=== PATIENT | female | born 1950 | race Caucasian/White ===

== ENCOUNTER 2024-08-19 06:26 | Day surgery (SDC) | payer OTHER, SELFPAY | END 2024-08-19 11:38 | disposition home or self-care (01) | LOC: GI 06:26 | PROVIDERS: ATTENDING PHYSICIAN Internal Medicine; FAMILY PHYSICIAN Family Medicine | DX: Z12.11 Encounter for screening for malignant neoplasm of colon (principal); Z86.0100 Personal history of colon polyps, unspecified; Z80.0 Family history of malignant neoplasm of digestive organs; K57.30 Diverticulosis of large intestine without perforation or abscess without bleeding; K64.4 Residual hemorrhoidal skin tags; D12.0 Benign neoplasm of cecum | CPT/HCPCS: 45385; 88305 ==

== ENCOUNTER 2024-09-21 01:10 | Observation (INO) | payer OTHER, SELFPAY ==
[2024-09-20 19:34] VITALS: BP 132/79
[2024-09-20 19:49] LABS: Hematocrit 36.1 % (37.0-47.0); Hemoglobin 12.4 g/dL (12.0-16.0); Mean Corp Hgb Conc. 34.3 g/dL (33.0-37.0); Mean Corpuscular Volume 86.2 fL (81.0-99.0); Nucleated Red Blood Cells % 0 %; Platelet Count 342 10^3/uL (130-400); Red Cell Dist. Width 12.8 % (11.5-14.5)
[2024-09-20 20:22] LABS: ALT (SGPT) 17 U/L (0-35); AST (SGOT) 23 U/L (14-36); Albumin 4.5 g/dl (3.5-5.0); Alkaline Phosphatase 89 U/L (38-126); Blood Urea Nitrogen 13 mg/dl (7-17); Calcium 9.4 mg/dl (8.4-10.2); Carbon Dioxide 25 mmol/L (22-30); Chloride 98 mmol/L (98-107); Glucose 115 mg/dl (70-99); Potassium 4.7 mmol/L (3.5-5.1); Sodium 128 mmol/L (135-145); Total Protein 7.0 g/dl (6.3-8.2); eGFR > 60.00
[2024-09-20 21:05] VITALS: BP 172/85
[2024-09-20 21:11] VITALS: BMI 19.3
--- NOTE | 2024-09-20 21:20 | ED.GENMED ---
History of Present Illness
General
Chief Complaint: Change in Mental Status
Source: patient
Exam Limitations: none
Time Seen by Provider: 09/20/24 20:48
History of Present Illness
History of Present Illness:
Patient had an episode of confusion, forgetfulness, cognitive issues earlier this afternoon. No unusual headache or other neurologic symptoms. Feels better now. Family and friends feel she is somewhat off however.
Past History
Past History
ED Past Surgical History: Appendectomy, Gynecological and Orthopedic
Social History
Tobacco: Non-smoker
Personal:
Review of Systems
Review of Systems
All Other Systems: Not applicable
Constitutional: Denies fever or chills
Respiratory: Reports no symptoms
Cardiac: Reports no symptoms
ABD/GI: Reports no symptoms
Phy Exam
Physical Exam
Physical Exam:
GENERAL: Alert and oriented in no apparent distress
EYE: Orbits normal.
NECK: Supple, no significant adenopathy.
ENT: Pharynx without erythema
CARDIAC: Regular rate and rhythm without any obvious murmurs.
LUNGS: Clear breath sounds,normal
ABDOMEN: Soft, without focal tenderness or distention
NEUROLOGICAL: Alert and oriented , grossly non-focal
SKIN: Warm and dry, no rash or lesion, no discoloration, skin intact.
MUSCULOSKELETAL: No edema,no deformity.Good color
PSYCH: Normal and appropriate interaction.. Cranial nerves II through XII intact. Speech normal. [id number] normal.
Course
Orders/Labs/Results
Orders:
Orders
09/20/24 19:38
CT Head W/o Iv Contrast Urgent
Comment:
Reason For Exam: ams
09/20/24 19:43
Complete Blood Count/With Diff Urgent
Comprehensive Metabolic Panel Urgent
Abnormal Lab Results
09/20/24
19:43
RBC 4.19 L 10^6/uL
(4.20-5.40)
Hct 36.1 L %
(37.0-47.0)
Absolute Lymphs (auto) 0.9 L 10^3/uL
(1.2-3.4)
Lymphocytes % 17.6 L %
(20.5-51.1)
Sodium 128 L mmol/L
(135-145)
Creatinine 0.5 L mg/dL
(0.6-1.0)
Glucose 115 H mg/dl
(70-99)
09/20/24 19:43
09/20/24 19:43
Vital Signs
Initial and Last Documented VS:
Initial Vital Signs
Temp Pulse Resp BP Pulse Ox
98.2 F 75 16 132/79 99
09/20/24 19:34 09/20/24 19:34 09/20/24 19:34 09/20/24 19:34 09/20/24 19:34
Last Documented Vital Signs
Temp Pulse Resp BP Pulse Ox
98.2 F 68 18 125/73 99
09/20/24 19:34 09/21/24 00:00 09/21/24 00:00 09/21/24 00:00 09/21/24 00:00
*Radiology
Radiology exam reviewed: radiology read reviewed (Volume loss. Chronic neurodegenerative disease based on CT)
*Pulse Oximetry
SaO2: 99
Oxygen Mode of Delivery: Room air
Patient hypoxic: no
*Critical Care Note
Total Time (30-74mins, 75-104mins- exclusive of procedures): Not Applicable
Update Note
Update Note:
This episode may have been from her undiagnosed degenerative changes, TIA, hyponatremia, stress. Warrants inpatient management
ED Attending Note
-
Portions of this chart may have been created with voice recognition software.� Occasional wrong word or��sound alike� substitutions may have occurred due to the inherent limitations of voice recognition software.
Discharge Plan
Departure
Patient Disposition: Admit
Date of Disposition: 09/20/24
Time of Disposition: 22:14
Presentation/result/management discussed w/ accepting MD/DO: Hospitalist
Discharge Problem:
Transient confusion/mental status change, Neuro degenerative changes on CT, Mild hyponatremia
Prescriptions:
No Action
zinc acetate 50 mg (zinc) Capsule
50 mg PO DAILY
Vitamin C 1,000 mg Tablet Extended Release
2,000 mg PO DAILY
nystatin 500,000 unit Tablet
500,000 unit PO DAILY
Rx Instructions:
daily and PRN
vitamin A 10,000 unit Capsule
10,000 unit PO DAILY
magnesium 200 mg Tablet
100 mg PO DAILY
cholecalciferol (vitamin D3) [Vitamin D3] 125 mcg (5,000 unit) Tablet
125 mcg PO DAILY
Circle 3 Fish Oil 900-1,400 mg Capsule,Delayed Release(Dr/Ec)
1 cap PO DAILY
melatonin 3 mg Capsule
3 mg PO HS
quercetin 500 mg Capsule
500 mg PO DAILY
Cbd Oil
80 mg PO HS
acetaminophen [Tylenol] 325 mg Tablet
650 mg PO PRN PRN (Reason: pain)
Black Garlic Fermented
704 mg PO DAILY
Joint Remedy
2 cap PO DAILY
Patient Comments:
GS 60 mg; MSM 250 mg; Turmeric 33 mg
Red Beet Powder
10 g PO DAILY
Patient Comments:
one scoop
ginkgo biloba 30 MG
1 cap PO DAILY
hawthorn 500 mg Capsule
500 mg PO DAILY
Fiber Powder Powder
1 ea PO DAILY
Lions Haim
2 tab PO DAILY
collagen
1 dose PO DAILY
Rx Instructions:
collagen powder
Aurum Homeopathic
1 dose PO DAILY
Referrals:
Martín,Mansoor, DO [Family Provider, Family Practice]
Interventions
Interventions:
*Risk Screen - Suicide Last Done: 09/20/24 19:34
*General Assessment Last Done: 09/20/24 19:34
*Neglect/Abuse Screening Last Done: 09/20/24 19:34
*ED- Fall Risk Assessment Last Done: 09/20/24 21:12
*ED COVID-19 Vaccine History Last Done: 09/20/24 21:12
ED- Pulmonary Assessment Last Done: 09/20/24 21:13
ED- Neurological Assessment Last Done: 09/20/24 21:13
ED- Cardiac Assessment Last Done: 09/20/24 21:13
ED Swallowing Screen Last Done: 09/20/24 21:13
Discharge Date and Time
Print Language: MAURITANIAN
[2024-09-20 22:00] VITALS: BP 156/84
[2024-09-20 23:00] VITALS: BP 150/84
[2024-09-21] VITALS: BP 125/73
--- NOTE | 2024-09-21 00:38 | HPS.HSE ---
Family Physician
-
Family Physician: Mansoor Resendiz, DO
Chief Complaint
-
Altered mental status
History of Present Illness
This is a 74-year-old who denies any active medical conditions presenting to the emergency department from home with episode of altered mental status typified by single episode of forgetfulness and confusion.
According to patient she was being driven home by family members after shopping for some items. As family were discussing these items patient had no recollection that she went to shop for these items and. Not a usual self but family members.
Although family not at bedside at the time of the interview patient stated that the family member decided to bring her to the emergency department based on these findings. She herself is alert and oriented x 3. She stated that she has had another
episode a few weeks ago on where she misplaced items that she thought she placed in a particular position. She otherwise denies any other specific episodes. She does endorse forgetting where she plays small items such as her keys
glasses shoes etc. She denied any changes in her behavior.
Patient denies having any headache blurry vision double vision, dizziness or lightheadedness. She denies any palpitations. She denies any chest pain. She has no nausea vomiting or diarrhea. She denies any urinary symptoms. She denies any cough
fevers or chills.
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 She thought this might be the reason why she was more forgetful during the daytime.
In the emergency department, patient was afebrile with a temp of 98.2, blood pressure was 125/73 with a pulse of 68 satting 98% on room air.
CT of the head shows no acute intracranial process with likely moderate bilateral frontal parietal lobe volume loss suggestive of a chronic nerve root degenerative disease. CBC was unremarkable, electrolytes notable for a sodium of 128 but the rest
of the electrolytes were normal with normal BUN and creatinine.
Medical History
Past Medical History
Past Medical History: Reports Other
Additional Past Medical History:
GERD without esophagitis
History of Lyme disease
History of basal cell carcinoma of the skin
History of vertigo
Pernicious anemia
Internal hemorrhoids status post banding
Past Surgical History: Reports Appendectomy and Other (Hemorrhoidal banding, diagnostic laparoscopy, robotic assisted lap SKIP repair of right femoral hernia with mesh,)
Social History
Tobacco: Non-smoker
Alcohol: Former
Drug: None
Personal:
Employment: Not Employed
Family History
Family History: Not pertinent
Allergies / Home Medications
Allergies reflects when Allergies were last updated in [facility].
Home Medications with original date entered in [facility]
Allergy/Medication List:
Allergies
Allergy/AdvReac Type Severity Reaction Status Date / Time
erythromycin base Allergy ABDOMINAL Verified 02/01/22 07:55
(Erythromycin Base) PAIN
house dust Allergy nasal Verified 02/01/22 07:55
congestion
mold Allergy Itching Verified 02/01/22 07:55
pollen extracts Allergy seasonal Verified 02/01/22 07:55
allergy
Sulfa (Sulfonamide Allergy Unknown Verified 02/01/22 07:55
Antibiotics)
(Sulfa(Sulfonamide
Antibiotics))
Yeast Allergy sore Verified 02/01/22 07:55
mouth,
'low blood
sugar
feeling'
Home Medications
Cbd Oil 80 mg PO HS 01/17/22
acetaminophen 325 mg tablet (Tylenol) 650 mg PO PRN PRN pain 01/17/22
ascorbic acid (vitamin C) 1,000 mg tablet,extended release (Vitamin C ER) 2,000 mg PO DAILY 01/17/22
cholecalciferol (vitamin D3) 125 mcg (5,000 unit) tablet (Vitamin D3) 125 mcg PO DAILY 01/17/22
magnesium 200 mg tablet 100 mg PO DAILY 01/17/22
melatonin 3 mg capsule 3 mg PO HS 01/17/22
nystatin 500,000 unit tablet 500,000 unit PO DAILY 01/17/22
omega 1-flf-fnq-fish oil 900 mg-1,400 mg capsule,delayed release 1 cap PO DAILY 01/17/22
quercetin 500 mg capsule 500 mg PO DAILY 01/17/22
vitamin A 3,000 mcg (10,000 unit) capsule 10,000 unit PO DAILY 01/17/22
zinc acetate 50 mg (zinc) capsule 50 mg PO DAILY 01/17/22
Black Garlic Fermented 704 mg PO DAILY 01/19/22
Joint Remedy 2 cap PO DAILY 01/19/22
Red Beet Powder 10 g PO DAILY 01/19/22
ginkgo biloba 1 cap PO DAILY 01/19/22
Aurum Homeopathic 1 dose PO DAILY 01/30/22
Lions Haim 2 tab PO DAILY 01/30/22
collagen 1 dose PO DAILY 01/30/22
hawthorn 500 mg capsule 500 mg PO DAILY 01/30/22
maltodextrin 1 ea PO DAILY 01/30/22
Review of Systems
-
Constitutional: Reports No Symptoms
EENT: Reports No Symptoms
Respiratory: Reports No Symptoms
Cardiac: Reports No Symptoms
Abdomen/GI: Reports No Symptoms
: Reports No Symptoms
Musculoskeletal: Reports No Symptoms
Skin: Reports No Symptoms
Neurological: Reports Other (Confusion/forgetfulness x 1)
Endocrine: Reports No Symptoms
Hematologic/Lymphatic: Reports No Symptoms
Psych: Reports No Symptoms
Physical Exam
Vital Signs
Vital Signs
Temp Pulse Resp BP Pulse Ox
98.2 F 68 18 125/73 99
09/20/24 19:34 09/21/24 00:00 09/21/24 00:00 09/21/24 00:00 09/21/24 00:00
Physical Exam
General: Well Developed, Well Nourished and No Apparent Distress
HEENT: NormoCephalic, Moist mucous membranes and Atraumatic
Respiratory: Clear
Cardiac: S1/S2 and Regular Rhythm; No Murmur or Rub
GI: Soft, Non Tender, Non Distended and Normal Bowel Sounds; No Organomegaly
Rectal: Deferred by Provider
Musculoskeletal: No Clubbing, No Cyanosis and No Edema
Skin: No Rash
Neuro: Nonfocal/grossly intact
Laboratory Results
-
09/20/24 19:43
09/20/24 19:43
Laboratory Results
Total Bilirubin 0.4 mg/dl (0.2-1.3) 09/20/24 19:43
AST 23 U/L (14-36) 09/20/24 19:43
ALT 17 U/L (0-35) 09/20/24 19:43
Alkaline Phosphatase 89 U/L (38-126) 09/20/24 19:43
Data Reviewed
-
CT Scan: Report Reviewed by me
Lab Data: Labs Reviewed by me
Old Records: Reviewed
Impression/Plan
-
IMPRESSION:
74-year-old female with no known active medical issues presents to the emergency department by family members for an episode of confusion/forgetfulness. NIHSS equals 0 at this time. Patient is alert and oriented x 3 and has no focal logical
deficits. CT scan consistent with chronic neurodegenerative changes. Patient has some mild hyponatremia but otherwise her labs are unremarkable.
PLAN:
Confusion/forgetfulness -this appears to be recurrent episode x 2. 1 episode several weeks ago during and now with second episode which she attributes to sleep deprivation. Patient CT scan is concerning for neurodegenerative changes
but she has no personal history of dementia. Father did have dementia in his late 80s. Endorsed alcohol use in the past stated last use was several weeks ago on .
-Admit to telemetry of sufficient
-Neurochecks every 6
-UA, check COVID
-Check B12, folate, TSH and RPR
- consider thiamine supplementation
-Orthostatic vital sign
- MRI brain
-Neurology consultation
Hyponatremia -based on prior labs patient has chronic hyponatremia with sodium that is around 130 currently 128, prior sodium 2 years ago was 129. She appears euvolemic
-Give a bolus of normal saline overnight
-Check urine awesome's and urine sodium
-Check TSH as above
-Patient is not on any sodium ultra medication
-Will recommend fluid restriction (patient feels she does not drink enough fluids at this moment but denies high fluid intake)
DVT prophylaxis�Lovenox subcu
CODE STATUS�full code
[2024-09-21 01:00] VITALS: BP 136/85
[2024-09-21] MEDS: NSS 1000 IV (01:22)
--- NOTE | 2024-09-21 02:18 | PTCARENOTE ---
Pt brought up from ED to 3 [facility] via stretcher. Pt able to ambulate into bed safely with staff assistance. Pt oriented to room, call aly within reach. Will continue to monitor.
[2024-09-21 02:27] VITALS: BMI 19.5
[2024-09-21 02:28] VITALS: BP 157/87
[2024-09-21 03:14] LABS: Urine Character Clear (Clear)
[2024-09-21 03:51] LABS: Urine Red Blood Cell 0-2 /HPF (0-2); Urine Squamous Cell 0-2 /LPF (Few)
[2024-09-21 07:04] LABS: Blood Urea Nitrogen 8 mg/dl (7-17); Calcium 9.2 mg/dl (8.4-10.2); Carbon Dioxide 25 mmol/L (22-30); Chloride 111 mmol/L (98-107); Estimated Creatinine Clearance 62 ml/min; Glucose 88 mg/dl (70-99); Potassium 4.0 mmol/L (3.5-5.1); Sodium 138 mmol/L (135-145); eGFR > 60.00
[2024-09-21 07:34] LABS: TSH 1.69 uIU/ml (0.47-4.68)
[2024-09-21 08:09] LABS: Folate 4.6 ng/ml (2.76-20); Vitamin B12 253 pg/ml (239-931)
[2024-09-21 08:30] VITALS: BP 126/72
--- NOTE | 2024-09-21 10:20 | CON.NEURO ---
Addendum entered and electronically signed by Jose Denton MD 09/21/24 15:34:
Studies reviewed.
I have personally examined the patient. I reviewed and agree with the FISHER NET's Note.
My addenda:
Awake, alert, interactive. No acute distress.
Speech intact.
Follows 2-step requests w/o difficulty. No tremor.
Extra-ocular movements grossly intact.
Facial movements full and symmetric. Hearing intact to normal conversational volume.
Normal UE movements bilaterally.
Neck: full ROM.
Chest: no dyspnea
Heart: no JVD
Ext: (-) Clubbing, (-) Cyanosis, (-) Edema
IMPRESSIONS/RECOMMENDATIONS:
Abrupt onset of change in mental status, which spontaneously resolved
Replace vitamin B12 by means of 1000 mcg daily, a chronic problem for the patient
No indication at this time patient should undergo further evaluation of normal pressure hydrocephalus
Consider outpatient neuropsychological testing as the patient is primarily concerned about her cognitive function
D/W patient
Will continue to follow as needed. Patient has an outpatient neurologist to provide follow-up
Original Note:
Documented by User: Arlin Evangelista NP 09/21/24 15:19
Neuro Assessment/Plan
Assessment
This is a right-handed 74-year-old who denies any active medical conditions presented to [facility] on 09/20/2024 from home with episode of confusion.
Head CT:
1. Moderate bilateral frontal and parietal lobe volume loss suggesting a CHRONIC NEURODEGENERATIVE DISEASE.
2. Moderate cerebellar volume loss.
3. Mild periventricular white matter leukoaraiosis.
Brain MRI: No acute intracranial abnormality.
Labs: Sodium 128, Vitamin B12 253
Plan
Impressions: acute episode of confusion possibly due to metabolic encephalopathy given hyponatremia and low vitamin B12 vs TIA vs transient global amnesia (TGA) given symptoms resolved and patient back to baseline
-Vitamin B12 low at 253, start B12 1,000 mcg daily
-brain MRI with no acute intracranial abnormality
-DVT prophylaxis
-stress reduction
All questions encouraged and answered, plan of care discussed with Dr. Denton and patient
Consultation
Order
Date of Consultation: 09/21/24
Requesting Provider: hospitalist
Reason for Consult: abrupt onset of confusion
Subjective/Objective
Subjective Data
Date of Service: September 21, 2024
This is a right-handed 74-year-old who denies any active medical conditions presented to [facility] on 09/20/2024 from home with episode of confusion. According to patient she was being driven home by family members after shopping for some items. As
family were discussing these items during the 25 minute car ride home, patient had no recollection that she went to shop for these items which was brief and lasted less than 2 minutes. Although family not at bedside at the time of the interview
patient stated that the family member decided to bring her to the emergency department based on these findings. She herself is alert and oriented x 3. She stated that she has had another episode a few weeks ago on where she misplaced
items that she thought she placed in a particular position. She otherwise denies any other specific episodes. She does endorse forgetting where she plays small items such as her keys glasses shoes etc. She denied any changes in her behavior. She
admits to being under a lot of stress. 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 She thought this might be the reason why she was more forgetful
during the daytime. She notes a headache the night prior. Of note, she has a history of migraines which has not occurred in years and is not on medication. She occasionally takes melatonin to sleep.
Patient denies having any vision changes, dizziness or lightheadedness. She denies any palpitations. She denies any chest pain. She has no nausea vomiting or diarrhea. She denies any urinary symptoms. She denies any cough fevers or chills.
In the emergency department, patient was afebrile with a temp of 98.2, blood pressure was 125/73 with a pulse of 68 satting 98% on room air.
CT of the head shows no acute intracranial process with likely moderate bilateral frontal parietal lobe volume loss suggestive of a chronic nerve root degenerative disease. CBC was unremarkable, electrolytes notable for a sodium of 128, Vitamin B12
253 but the rest of the electrolytes were normal with normal BUN and creatinine. NIHSS currently 0. Patient appears back to baseline.
Objective Data
Vital Signs
Temp Pulse Resp BP Pulse Ox
98.6 F 65 16 126/72 97
09/21/24 08:30 09/21/24 08:30 09/21/24 08:30 09/21/24 08:30 09/21/24 08:30
Lab Results
09/20/24 19:43
09/21/24 06:18
Sodium 138 mmol/L (135-145) D 09/21/24 06:18
Potassium 4.0 mmol/L (3.5-5.1) 09/21/24 06:18
BUN 8 mg/dl (7-17) 09/21/24 06:18
Glucose 88 mg/dl (70-99) 09/21/24 06:18
Calcium 9.2 mg/dl (8.4-10.2) 09/21/24 06:18
Vitamin B12 253 pg/ml (239-931) 09/21/24 06:18
Patient Allergies
erythromycin base (Erythromycin Base) Allergy (Verified 02/01/22 07:55)
ABDOMINAL PAIN
house dust Allergy (Verified 02/01/22 07:55)
nasal congestion
mold Allergy (Verified 02/01/22 07:55)
Itching
pollen extracts Allergy (Verified 02/01/22 07:55)
seasonal allergy
Sulfa (Sulfonamide Antibiotics) (Sulfa(Sulfonamide Antibiotics)) Allergy (Verified 02/01/22 07:55)
Unknown
Yeast Allergy (Verified 02/01/22 07:55)
sore mouth, 'low blood sugar feeling'
CVA Assessment
NIH Stroke Score
Level of Consciousness: 0 - Alert
LOC Questions: 0-Answers both correctly
LOC Commands: 0-Performs both correctly
Best Horizontal Gaze: 0-Normal
Visual Salcedo: 0=Normal, no visual loss
Facial Palsy: 0=Normal, symmetrical
Motor - Right Arm: 0=No drift 10 seconds
Motor - Left Arm: 0=No drift 10 seconds
Motor - Right Le-No drift 5 seconds
Motor - Left Le-No drift 5 seconds
Limb Ataxia: 0-Absent
Sensation: 0-Normal
Best Language: 0-No aphasia
Dysarthria: 0-Normal
Extinction and Inattention: 0-No abnormality
NIH Total Score:: 0
Tenecteplase Contraindications
Inclusion and Exclusion criteria reviewed: Yes
Reasons for NON-Tx with Thrombolytics ABSOLUTE Exclusions: Time-out of window
IAT Contraindications: NIHSS < 6 and Imaging doesn't show large vessel occlusion as cause of stroke
Modified [place] Score (MRS)
-
Modified [place] Scale (mRS): No symptoms
Score: 0
Review of Systems
-
History Source: Patient
All other systems: Reviewed and negative
Physical Exam
-
General: No Apparent Distress, Comfortable and Appears Stated Age
HEENT: Normocephalic, Atraumatic and Anicteric
Neck: Full Range of Motion
Respiratory: No Dyspnea
Cardiac: No JVD
GI: Non-distended
Skin: Unremarkable
Extremities: No Clubbing, No Cyanosis and No Edema
Psych: Unremarkable
Extended Neurological Exam
Mood & Affect: Mood Unremarkable
Attention Span & Concentration: Awake, Alert, Interactive and No Difficulty with 2 Step Request
Memory: Unremarkable
Tremor: Hand Tremor Absent and Head Tremor Absent
Involuntary Movement: None
Speech: Quality Unremarkable, Quantity Unremarkable and Rate of Production Unremarkable
Cranial Nerve II: Left Eye: Visual Salcedo Grossly Intact
Cranial Nerve II: Right Eye: Visual Salcedo Grossly Intact
Cranial Nerves III, IV, : Extraocular Movement: Extraocular Movement Full in all Directions
Cranial Nerve VII: Facial Symmetry: Normal Facial Symmetry
Cranial Nerve VIII: Hearing: Unremarkable Hearing to Normal Conversational Volume
Cranial Nerves IX, X: Palate Movement: Palate Elevation Symmetric
Cranial Nerve XII: Tongue Protusion: Midline
Muscle Strength, Overall: Full Throughout
Muscle Bulk & Tone: Bulk Unremarkable and Tone Unremarkable
Pronator Drift: No Drift in Upper Extremities and No Drift in Lower Extremities
Deep Tendon Reflexes: Unremarkable Throughout
Coordination: Antaec-lapn-terihn Testing Unremarkable and Reaches for Objects without Difficulty
Data Reviewed
-
CT Head: Report Reviewed and Image Reviewed
Labs: Report Reviewed
Reviewed with: Physician and Patient
Old Records: Summarized
Medications
-
Active Medications
Generic Name Dose Route Start Last Admin
Trade Name Freq PRN Reason Stop Dose Admin
Acetaminophen 650 mg 09/21/24 02:07
Acetaminophen 325 Mg Tablet PO 10/19/24 02:06
[id number] PRN
mild pain/YODER/temp> 100.4F
Bisacodyl 10 mg 09/21/24 02:07
Bisacodyl 10 Mg Rectal Suppository RECTAL 10/19/24 02:06
[id number] PRN
constipation
Enoxaparin Sodium 30 mg 09/21/24 18:00
Enoxaparin Sodium 30 Mg/0.3 Ml Syringe SC 10/19/24 17:59
QPM LOI
Polyethylene Glycol 17 grams 09/21/24 02:07
Polyethylene Glycol Powder 17 Grams Packet PO 10/19/24 02:06
DAILYPRN PRN
constipation
Senna/Docusate Sodium 1 tablet 09/21/24 02:07
Docusate W/Senna (Penelope-Colace) Tablet PO 10/19/24 02:06
BIDPRN PRN
constipation
Sodium Chloride 0 flush 09/21/24 03:00
Sodium Chloride 0.9% (Flush) Syringe IV 10/19/24 02:59
PER PROTOCOL LOI
Home Medications
�Medication �Instructions �Recorded
Cbd Oil 80 mg PO HS 01/17/22
acetaminophen 325 mg tablet 650 mg PO PRN PRN pain 01/17/22
(Tylenol)
ascorbic acid (vitamin C) 1,000 mg 2,000 mg PO DAILY 01/17/22
tablet,extended release (Vitamin C
ER)
cholecalciferol (vitamin D3) 125 125 mcg PO DAILY 01/17/22
mcg (5,000 unit) tablet (Vitamin
D3)
magnesium 200 mg tablet 100 mg PO DAILY 01/17/22
melatonin 3 mg capsule 3 mg PO HS 01/17/22
nystatin 500,000 unit tablet 500,000 unit PO DAILY 01/17/22
omega 5-kvk-ygf-fish oil 900 1 cap PO DAILY 01/17/22
mg-1,400 mg capsule,delayed release
quercetin 500 mg capsule 500 mg PO DAILY 01/17/22
vitamin A 3,000 mcg (10,000 unit) 10,000 unit PO DAILY 01/17/22
capsule
zinc acetate 50 mg (zinc) capsule 50 mg PO DAILY 01/17/22
Black Garlic Fermented 704 mg PO DAILY 01/19/22
Joint Remedy 2 cap PO DAILY 01/19/22
Red Beet Powder 10 g PO DAILY 01/19/22
ginkgo biloba 1 cap PO DAILY 01/19/22
Aurum Homeopathic 1 dose PO DAILY 01/30/22
Lions Haim 2 tab PO DAILY 01/30/22
collagen 1 dose PO DAILY 01/30/22
hawthorn 500 mg capsule 500 mg PO DAILY 01/30/22
maltodextrin 1 ea PO DAILY 01/30/22
Past History
Past History
ED Past Surgical History: Appendectomy, Gynecological and Orthopedic
Family/Social History
Tobacco: Non-smoker
Personal:

Documented by User: Jose Denton MD 09/21/24 15:30
CVA Assessment
NIH Stroke Score
NIH Total Score:: 0
Modified Wilder Score (MRS)
-
Score: 0
[2024-09-21] MEDS: CYANOCOBALAMIN 1000 MCG IM (11:31)
[2024-09-21] MEDS: VITAMIN B-12 1000 MCG PO (11:31)
[2024-09-21] MEDS: ATIVAN 1 MG PO (12:37)
[2024-09-21 16:00] VITALS: BP 134/70
--- NOTE | 2024-09-21 16:18 | W.PN.HOSP.TC ---
Addendum entered and electronically signed by Jose Qureshi MD 09/21/24 22:41:
Attending Addendum-
I saw and evaluated the patient. I reviewed the resident�s note and agree with findings and plan as documented in the resident�s note. Sub: 'I feel fine' states that memory issues are related to age. No neuro complaints. 'Im going home if the MRI is
fine' Full 12 point ROS reviewed and negative except as documented Exam: Vitals reviewed in chart GEN-NAD heart RRR lungs clear abd soft LE no edema Neuro AAo x 3 MS 5/ sensation intact no cerebellar deficits.
Plan:
#Confusion/forgetfulness -this appears to be recurrent episode x 2. 1 episode several weeks ago during and now with second episode which she attributes to sleep deprivation. Patient CT scan is concerning for neurodegenerative changes
but she has no personal history of dementia. Father did have dementia in his late 80s.
-seems consistent with mild dementia and chronic issue
-UA, check COVID-neg
-folate, TSH and RPR-neg
-b12 deficient - supplement
-CT head 1. Moderate bilateral frontal and parietal lobe volume loss suggesting a CHRONIC NEURODEGENERATIVE DISEASE.
2. Moderate cerebellar volume loss.
3. Mild periventricular white matter leukoaraiosis.
-MRI brain-No acute intracranial abnormality.
-Neurology consultation appreciated- neuopsych eval as OP
#Hyponatremia -based on prior labs patient has chronic hyponatremia with sodium that is around 130 was 128,She appears euvolemic
-Give a bolus of normal saline overnight
-sodium with rapid correction- no neuro deficits noted
-TSH-nl
-Will recommend fluid restriction (patient feels she does not drink enough fluids at this moment but denies high fluid intake
#use of many herbal supplements- could contribute to mental status, eval as OP
DVT prophylaxis�Lovenox subcu
CODE STATUS�full code->DNR
Dispo DC home
ACP
Patient consented to discuss, was alone, time spent explanation of advance directives, changes in health status, patient�s health care wishes if the patient becomes unable to make health decisions, goals of care, code status, and prognosis code
status change to DNR. Patient adamant about this was not confused . - 16 minutes
Time spent coordinating care, DC planning, review of DC plan of care with resident, transition of care, review of records, med rec/scripts sent electronically, consults, notes, d/w consultants, nursing, family, and CM total time documented is
exclusive of any additional time listed that was spent in advance care planning discussion�31 mins >50% of this time was devoted to counseling and coordination of care
Original Note:
Today's Communication/Plan
-
Monitor clinical status. Currently A&O x3. Follow up on remaining studies (syphilis, urine cx).
Plan for discharge to home later today.
Assessment / Plan
Assessment / Plan
#Confusion
-CT Head (09/20): No acute intracranial pathology; frontal and parietal volume loss suggestive of chronic neurodegenerative disease
-MRI brain (09/21): Mild age-related parenchymal atrophy
-Afebrile, no leukocytosis
-Patient reports urgency since IVF given, but otherwise asymptomatic
-Urine studies: few bacteria, WBCS WNL, LE 1+
-Urine cx: PENDING
-Syphilis serology: PENDING
-B12, Folate, and TSH are WNL, though B12 is on the lower end of normal
-Per neuro, start supplement of B12 1,000 mcg PO qd
#Chronic hyponatremia (resolved)
-Na 128 on presentation
-Na 138 today following administration of IVF bolus
-Monitor BMP, clinical status
Dispo: Home
Anticipated Discharge: Today
Subjective/Interval History
-
Date of Service: September 21, 2024
Patient seen at the bedside on hospital day #2. Nursing reports NAEO. Patient is feeling well. No current complaints.
Objective Data
-
Labs:
Laboratory Results
07/07/25
06:18
Sodium 138 D
Potassium 4.0
Chloride 111 H
Carbon Dioxide 25
BUN 8
Creatinine 0.5 L
Glucose 88
Calcium 9.2
Vital Signs:
Vital Signs
Temp Pulse Resp BP Pulse Ox
98.6 F 65 16 126/72 97
09/21/24 08:30 09/21/24 08:30 09/21/24 08:30 09/21/24 08:30 09/21/24 09:00
I&O
09/20/24 09/21/24 09/22/24
06:59 06:59 06:59
Intake Total 240 / 240
Balance 240 / 240
Review of Systems
-
History Source: Patient
Constitutional: Denies Fever, Fatigue or Chills
EENT: Reports No Symptoms Reported
Respiratory: Denies Cough, Trouble Breathing or Wheezing
Cardiac: Denies Chest Pain, Palpitations or Syncope
Abdomen/GI: Denies Abdominal Pain, Nausea, Vomiting or Diarrhea
Genitourinary: Reports Urgency; Denies Dysuria, Frequency or Difficulty Voiding
Musculoskeletal: Denies Edema
Skin: Reports No Symptoms
Neuro: Denies Headache, Weakness or Numbness
Physical Exam
-
General: No Apparent Distress
HEENT: Normocephalic and Atraumatic
Respiratory: Clear to Auscultation and Non Labored Respirations; Negative Wheezes or Crackles
Cardiac: Regular Rhythm and S1/S2; Negative Murmur, Rub or Gallop
GI: Soft, Nontender (No suprapubic tenderness) and Normal Bowel Sounds
Musculoskeletal: No Cyanosis and No Edema
Skin: Warm and Dry
Neuro: AO x 3
Psych: Calm
--- NOTE | 2024-09-21 19:02 | W.DCSUMMARY ---
Addendum entered and electronically signed by Jose Qureshi MD 09/21/24 22:42:
Read, reviewed, and agree. See same day progress note for additional details.
Reid Qureshi MD
Original Note:
Documented by User: Arsalan Kruse MD, Resident 09/21/24 19:20
Discharge Summary
Discharge Data
Date of Admission: 09/21/24
Date of Discharge: 09/21/24
-
Pending Results: Yes
Additional Pending Results:
Urine culture (not finalized); RPR
Hospital Course
Discharging Physician : Arsalan Kruse MD; Jose Qureshi MD
Disposition : Home
Primary care physician : � � �Mansoor Resendiz
Principal Discharge diagnosis : Disorientation, unspecified; hyponatremia
Chronic Discharge diagnosis : N/A
Hospital Course : Patient presented to the [place] emergency department following an episode of confusion/forgetfulness, which was witnessed by family. The patient was afebrile, without leukocytosis, and exhibited no symptoms other than urinary
urgency following IV fluid administration. The patient was hyponatremic with a sodium of 128 on presentation. A repeat sodium later in hospital day 1 revealed a level of 138. Workup was conducted with various lab tests including the following:
urine studies, syphilis serology, B12, folate, and TSH. None of these tests were diagnostic of a specific etiology related to the confusion. The patient also underwent imaging studies to determine an etiology (see below). While the studies did
not elucidate any acute cause of the confusion, they did suggest potential chronic neurodegenerative changes in the patient's brain. Outpatient follow-up with neurology is recommended.
Important imaging findings : �
CT Head - Impression:
1. Moderate bilateral frontal and parietal lobe volume loss suggesting a CHRONIC NEURODEGENERATIVE DISEASE.
2. Moderate cerebellar volume loss.
MRI Brain - Impression:
1. Mild age-related parenchymal atrophy. 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
Procedure findings : �N/A
Discharge Plan
-
Patient Disposition: Home (Routine Discharge)
Discharge Diagnosis/Procedures: Disorientation (unspecified); hyponatremia
Condition: Good
Diet: As tolerated
Activity: As tolerated
Driving Restrictions: As prior to admission
Bathing Restrictions: None
Referrals:
Mansoor Resendiz DO [Family Provider, [facility]]
Additional Discharge Medication Instructions: Follow up with neurologist in outpatient setting in 1-2 weeks
Take B12 supplement on an empty stomach to enhance absorption
Prescriptions:
New
cyanocobalamin (vitamin B-12) [Vitamin B-12] 1,000 mcg Tablet
1,000 mcg PO DAILY 90 Days Qty: 90 3RF
Continued
zinc acetate 50 mg (zinc) Capsule
50 mg PO DAILY
Vitamin C 1,000 mg Tablet Extended Release
2,000 mg PO DAILY
nystatin 500,000 unit Tablet
500,000 unit PO DAILY
Rx Instructions:
daily and PRN
vitamin A 10,000 unit Capsule
10,000 unit PO DAILY
magnesium 200 mg Tablet
100 mg PO DAILY
cholecalciferol (vitamin D3) [Vitamin D3] 125 mcg (5,000 unit) Tablet
125 mcg PO DAILY
omega 6-adr-hif-fish oil 900-1,400 mg Capsule,Delayed Release(Dr/Ec)
1 cap PO DAILY
melatonin 3 mg Capsule
3 mg PO HS
quercetin 500 mg Capsule
500 mg PO DAILY
Cbd Oil
80 mg PO HS
acetaminophen [Tylenol] 325 mg Tablet
650 mg PO PRN PRN (Reason: pain)
Black Garlic Fermented
704 mg PO DAILY
Joint Remedy
2 cap PO DAILY
Patient Comments:
GS 60 mg; MSM 250 mg; Turmeric 33 mg
Red Beet Powder
10 g PO DAILY
Patient Comments:
one scoop
ginkgo biloba 30 MG
1 cap PO DAILY
hawthorn 500 mg Capsule
500 mg PO DAILY
maltodextrin Powder
1 ea PO DAILY
Lions Haim
2 tab PO DAILY
collagen
1 dose PO DAILY
Rx Instructions:
collagen powder
Aurum Homeopathic
1 dose PO DAILY
Discharge Orders:
Discharge Patient (As Directed); Ordered 09/21/24
Ordered By: Arsalan Kruse
Discharge Date and Time
Discharge Date/Time: 09/21/24 18:29
Print Language: CROATIAN

Documented by User: Jose Qureshi MD 09/21/24 22:29
Discharge Summary
Discharge Data
Date of Admission: 09/21/24
Date of Discharge: 09/21/24
Discharge Plan
-
Patient Disposition: Home (Routine Discharge)
Discharge Diagnosis/Procedures: Disorientation (unspecified); hyponatremia
Condition: Good
Diet: As tolerated
Activity: As tolerated
Driving Restrictions: As prior to admission
Bathing Restrictions: None
Referrals:
Mansoor Resendiz DO [Family Provider, Family Practice]
Additional Discharge Medication Instructions: Follow up with neurologist in outpatient setting in 1-2 weeks
Take B12 supplement on an empty stomach to enhance absorption
Prescriptions:
New
cyanocobalamin (vitamin B-12) [Vitamin B-12] 1,000 mcg Tablet
1,000 mcg PO DAILY 90 Days Qty: 90 3RF
Continued
zinc acetate 50 mg (zinc) Capsule
50 mg PO DAILY
Vitamin C 1,000 mg Tablet Extended Release
2,000 mg PO DAILY
nystatin 500,000 unit Tablet
500,000 unit PO DAILY
Rx Instructions:
daily and PRN
vitamin A 10,000 unit Capsule
10,000 unit PO DAILY
magnesium 200 mg Tablet
100 mg PO DAILY
cholecalciferol (vitamin D3) [Vitamin D3] 125 mcg (5,000 unit) Tablet
125 mcg PO DAILY
omega 8-zes-swy-fish oil 900-1,400 mg Capsule,Delayed Release(Dr/Ec)
1 cap PO DAILY
melatonin 3 mg Capsule
3 mg PO HS
quercetin 500 mg Capsule
500 mg PO DAILY
Cbd Oil
80 mg PO HS
acetaminophen [Tylenol] 325 mg Tablet
650 mg PO PRN PRN (Reason: pain)
Black Garlic Fermented
704 mg PO DAILY
Joint Remedy
2 cap PO DAILY
Patient Comments:
GS 60 mg; MSM 250 mg; Turmeric 33 mg
Red Beet Powder
10 g PO DAILY
Patient Comments:
one scoop
ginkgo biloba 30 MG
1 cap PO DAILY
hawthorn 500 mg Capsule
500 mg PO DAILY
maltodextrin Powder
1 ea PO DAILY
Lions Haim
2 tab PO DAILY
collagen
1 dose PO DAILY
Rx Instructions:
collagen powder
Aurum Homeopathic
1 dose PO DAILY
Discharge Orders:
Discharge Patient (As Directed); Ordered 09/21/24
Ordered By: Arsalan Kruse
Discharge Date and Time
Discharge Date/Time: 09/21/24 18:29
Print Language: CROATIAN
[2024-09-22 17:15] LABS: Syphilis/T. pallidum Ab Reflex Negative (Negative)
== END 2024-09-21 18:29 | disposition home or self-care (01) ==
LOC: 3 WEST ACU 01:10
PROVIDERS: Emergency Medicine; ADMITTING PHYSICIAN Internal Medicine; ATTENDING PHYSICIAN Family Medicine; EMERGENCY PHYSICIAN Emergency Medicine; FAMILY PHYSICIAN Family Medicine; OTHER PHYSICIAN Psychiatry & Neurology Neurology
DX: R41.0 Disorientation, unspecified (principal); K21.9 Gastro-esophageal reflux disease without esophagitis; E87.1 Hypo-osmolality and hyponatremia; Z66 Do not resuscitate; Z79.899 Other long term (current) drug therapy; Z87.19 Personal history of other diseases of the digestive system
CPT/HCPCS: 70450; 70551; 80048; 80053; 81003; 81015; 82607; 82746; 83935; 84300; 84443; 85025; 86780; 87086; 99285; G0378